=== PATIENT | male | born 1950 | race Caucasian/White ===

== ENCOUNTER 2017-09-09 09:26 | Day surgery (SDC) | payer MEDICARE, BC ==
[~2017-09-09] VITALS: Ht 180.3 cm; Wt 69.6 kg
[~2017-09-09 09:26] MED LIST: CLON0.2T PO; DOXA2TAB9 PO; FEBU80TA2 PO; HEPARIN 1,000 UNITS/ML, 10ML ONE; METO50TA82 PO
[2017-09-09] MEDS ORDERED: ALPR-475 PO (11:16)
[2017-09-09 11:22] VITALS: BP 202/98
[2017-09-09] MEDS ORDERED: SODIUM CHLORIDE 0.9% 1,000 ML IV SCH (12:55)
[2017-09-09] MEDS ORDERED: BUPIVACAINE/PF 0.5% ONE (14:22)
[2017-09-09] MEDS ORDERED: EPINEPHRINE 1 MG/ML, 1ML ONE (14:22)
[2017-09-09] MEDS ORDERED: FENTANYL PF 100 MCG/2ML ONE (15:17)
[2017-09-09] MEDS ORDERED: LIDOCAINE-MPF 2% ,5ML ONE (15:44)
[2017-09-09] MEDS ORDERED: SUCCINYLCHOLINE 20 MG/ML, 10ML ONE (15:44)
[2017-09-09] MEDS ORDERED: ONDANSETRON 2MG/ML, 2ML ONE (16:07)
[2017-09-09] MEDS ORDERED: CEFAZOLIN 1,000 MG ONE (16:07)
[2017-09-09] MEDS ORDERED: DEXAMETHASONE 4 MG/ML, 1ML ONE (16:07)
[2017-09-09] MEDS ORDERED: PROPOFOL 10 MG/ML, 20ML ONE (16:07)
[2017-09-09] MEDS ORDERED: ALBUTEROL/IPRATROPIUM 2.5MG/0.5MG, 3 ML NPPB PRN (16:30)
[2017-09-09] MEDS ORDERED: METOCLOPRAMIDE 5 MG/ML, 2ML IV PRN (16:30)
[2017-09-09] MEDS ORDERED: OXYcodone 5 MG/5 ML ORAL.SOL UDC PO PRN (16:30)
[2017-09-09] MEDS ORDERED: METOPROLOL 1 MG/ML, 5ML IV PRN (16:30)
[2017-09-09] MEDS ORDERED: MEPERIDINE/PF 25MG/0.5ML IVPush PRN (16:30)
[2017-09-09] MEDS ORDERED: hydrALAzine 20 MG/ML, 1ML IV PRN (16:30)
[2017-09-09] MEDS ORDERED: HYDROmorphone 1 MG/ML, 1ML IV PRN (16:30)
[2017-09-09] MEDS ORDERED: FENTANYL PF 100 MCG/2ML IV PRN (16:30)
[2017-09-09] MEDS ORDERED: DIAZEPAM 5 MG/ML, 2ML IVPush PRN (16:30)
[2017-09-09] MEDS ORDERED: MIDAZOLAM 1 MG/ML, 2ML IV PRN (16:30)
[2017-09-09] MEDS ORDERED: PROMETHAZINE 12.5 MG SUPP PR PRN (16:30)
[2017-09-09] MEDS ORDERED: ACETAMINOPHEN 325 MG TABLET PO PRN (16:30)
[2017-09-09] MEDS ORDERED: ONDANSETRON 2MG/ML, 2ML IVPush PRN (16:30)
[2017-09-09] MEDS ORDERED: ACETAMINOPHEN 650 MG/20.3 ML UDC ONE (16:33)
== END 2017-09-09 17:40 | disposition home or self-care (01) ==
LOC: OUT 09:26
PROVIDERS: ATTEND Surgery Vascular Surgery
DX: I12.9 Hypertensive chronic kidney disease with stage 1 through stage 4 chronic kidney disease, or unspecified chronic kidney disease (principal); N18.9 Chronic kidney disease, unspecified
CPT/HCPCS: 36415; 49421; 80047; 93005; J0330; J0690; J1100; J2405; J2704; J3010; J3490; J7030; J0171; J1644